=== PATIENT | male | born 1965 | race Caucasian/White ===

== ENCOUNTER → 2020-05-19 | Outpatient (CLI) | payer BC ==
[~2020-05-19] MED LIST: CONTRAST GIVEN. MC PRN; IOHEXOL 240 MG/ML 50ML VIAL. PO ONE; IOHEXOL 300 MG/ML 100ML VIAL. IV ONE; ROPI0.25 PO; TAMS0.4C97 PO
--- NOTE | 2020-05-19 15:50 | KCIC ---
EXAM: CT Abdomen and Pelvis with IV contrast INDICATION: Reason: Lower abdominal pain several months, diarrhea. / Spl. Instructions: 100mL Omni 300 / History: Evaulate for colitis, adenopathy, or other abdominal abnormality. TECHNIQUE: Multi-detector row CT images were acquired from the lung bases through the abdomen and pelvis with the use of IV contrast. Sagittal and coronal images were acquired from the transaxial data. All CT scans performed at this facility utilize dose optimization techniques as appropriate to the exam, including the following: Automated exposure control and adjustment of the mA and/or KV according to patient size (this includes techniques or standardized protocols for targeted exams where dose is indication/reason for exam). IV CONTRAST: Administered ORAL CONTRAST: Administered COMPARISON: None FINDINGS: LOWER CHEST: Unremarkable LIVER: Unremarkable BILIARY SYSTEM: Gallbladder is unremarkable. Bile ducts are not dilated. PANCREAS: Unremarkable SPLEEN: Unremarkable ADRENALS: Unremarkable KIDNEYS & URETERS: Unremarkable BLADDER: Unremarkable REPRODUCTIVE ORGANS: Unremarkable GASTROINTESTINAL: The distal large bowel from the distal transverse colon through the rectum shows diffuse spasm with mild wall thickening and mild mesenteric hyperemia. Otherwise, the stomach, small bowel, and colon are unremarkable. The appendix is normal. MESENTERY/PERITONEUM/RETROPERITONEUM: Unremarkable VASCULAR: Unremarkable LYMPH NODES: No adenopathy OSSEOUS & SOFT TISSUES: Mild degenerative changes in lumbar spine. IMPRESSION: Findings of mild left-sided colitis. No bowel obstruction, perforation or abscess formation. Electronically signed by: Grace Christie MD (05/19/2020 3:47 PM) [id number]
== END ==
LOC: KCIC CT 12:30
PROVIDERS: ATTEND Family Medicine
DX: R19.7 Diarrhea, unspecified (principal); M47.816 Spondylosis without myelopathy or radiculopathy, lumbar region
CPT/HCPCS: 74177; Q9966; Q9967